=== PATIENT | male | born 1980 | race Caucasian/White ===

== ENCOUNTER 2018-05-04 12:42 | Emergency (ER) | payer MEDICAID ==
[~2018-05-04] VITALS: Ht 172.7 cm; Wt 95.3 kg
[2018-05-04 12:59] VITALS: BP 158/82; Ht 172.7 cm; Wt 95.3 kg
== END 2018-05-04 16:01 | disposition home or self-care (01) ==
LOC: ED 12:42
DX: B02.9 Zoster without complications (principal); F17.210 Nicotine dependence, cigarettes, uncomplicated